=== PATIENT | male | born 1990 | race Caucasian/White ===

== ENCOUNTER 2017-12-30 15:37 | Emergency (ER) | payer OTHER ==
[2017-12-30 15:45] VITALS: Ht 175.3 cm
[2017-12-30 16:40] LABS: BASOPHIL % 0.5 % (0-2); PLATELET COUNT 250 x10^3mcL (130-400); RED CELL DISTRIBUTION WIDTH 12.3 % (11.5-14.5)
[2017-12-30 16:44] LABS: CALCIUM 8.5 mg/dL (8.5-10.1); CARBON DIOXIDE 26.3 mmol/L (21-32); CHLORIDE SERUM 107 mmol/L (98-107); CREATININE SERUM 0.9 mg/dL (0.7-1.3); GFR1 > 60 mL/min; GLUCOSE SERUM 85 mg/dL (74-106); POTASSIUM SERUM 4.4 mmol/L (3.5-5.1); SODIUM SERUM 140 mmol/L (136-145)
[2017-12-30 19:20] VITALS: BP 128/74
== END 2017-12-30 19:20 | disposition home or self-care (01) ==
LOC: ED 15:37
PROVIDERS: Emergency Medicine
DX: R07.89 Other chest pain (principal); G89.29 Other chronic pain; M54.5 Low back pain
CPT/HCPCS: J1885

== ENCOUNTER 2018-06-03 09:28 | Emergency (ER) | payer SELFPAY ==
[~2018-06-03] VITALS: Ht 172.7 cm; Wt 86.9 kg
[2018-06-03 09:47] VITALS: Ht 172.7 cm; Wt 86.9 kg
[2018-06-03 11:12] VITALS: BP 132/69
== END 2018-06-03 11:18 | disposition home or self-care (01) ==
LOC: ED 09:28
DX: M54.41 Lumbago with sciatica, right side (principal)
CPT/HCPCS: J1885